=== PATIENT | male | born 1995 | race Caucasian/White ===

== ENCOUNTER 2016-04-09 17:20 | Emergency (ER) | payer SELFPAY ==
--- NOTE | 2016-04-09 19:37 | ED ORDER SUMMARY ---
..... Patient: MELINA BAILEY OrderSheet Merged With [facility] VisitID: [id number] [address] [place] [address] 21y, M Registration Date/Time: 04/09/2016 ORDER SHEET Weight: 76.6 kg Allergies: No Known Drug Allergy GENERAL ORDERS: Blood Culture (No) (N/A) Urgent (17:52 04/09/2016 Misael Robertson) (Ack 17:57 TBergley) (18:07 TBergley) CBC w Diff Urgent (17:53 04/09/2016 Misael Robertson) (Ack 17:57 TBergley) (18:07 TBergley) CMP Urgent (17:53 04/09/2016 Misael Robertson) (Ack 17:57 TBergley) (18:07 TBergley) MEDICATION ORDERS: IV FLUIDS: Clindamycin IV 600 mg/50mL (NOW) (17:53 04/09/2016 Misael Robertson) [facility] IV Saline Lock (17:53 04/09/2016 Misael Robertson) (18:14 [facility]) ORDER SHEET NOTES: [Electronically signed by Gilma Ash (19:48 04/09/2016)] [Electronically signed by Dwight Ramos Dr. (21:33 04/09/2016)] [Electronically locked/signed by Gilma Ash (19:48 04/09/2016)]
--- NOTE | 2016-04-09 19:37 | ED CLINICAL REPORT ---
Clinical Report - Physicians/Mid Levels [facility] [address] [place] [address] 04/09/2016 17:23 Patient: MELINA BAILEY Time Seen: 17:29; initial patient contact. Arrived- By private vehicle. Historian- patient. HISTORY OF PRESENT ILLNESS Chief Complaint: Injury to the right foot. The injury happened about 1 1/2 weeks ago. Occurred at home. (Blister from his shoes that became infected). Patient is experiencing mild pain. Patient denies injury to the head or neck. REVIEW OF SYSTEMS The patient sustained a laceration. He complains of pain on weight bearing. He has had swelling. No tingling, weakness, numbness, suspected foreign body or chills. No fever. All systems otherwise negative, except as recorded above. PAST HISTORY Tetanus Status. Abscess. SURGERIES: Adenoidectomy. Tympanostomy Tubes. Medications: None. Allergies: No Known Drug Allergy. SOCIAL HISTORY Current every day smoker. History of drug use: marijuana. No alcohol use. ADDITIONAL NOTES The nursing notes have been reviewed with agreement regarding the chief complaint, PMH and patient medications and allergies. PHYSICAL EXAM Vital Signs: 04/09/2016 17:34 BP: 129/88. HR: 68. RR: 18. O2 saturation: 99%. Temp: 97.9 F. Have been reviewed as normal. Appearance: Alert. Oriented X3. No acute distress. Eyes: Eyes normal inspection. ENT: Pharynx normal. The mucous membranes are not dry. CVS: Normal heart rate and rhythm. Heart sounds normal. Respiratory: No respiratory distress. Breath sounds normal. Skin: Skin intact. Skin warm and dry. Extremities: Swelling, warmth, tenderness and erythema present in the right foot and ankle. No drainage in the feet or ankles, lymphangitis in the feet or ankles or fluctuance in the feet or ankles. Foot and ankle exam otherwise negative. Extremities otherwise negative. Neuro, Vascular and Tendons: Vascular status intact. Sensation intact. Motor intact. Tendon function intact. Gait: Normal gait. Neuro: Oriented X 3. LABS, X-RAYS, AND EKG Laboratory Tests: CBC w Diff: (CHETNA: 04/09/2016 18:15) ( MsgRcvd 04/09/2016 18:25) Final results Test Result Flag Units (Reference) WHITE BLOOD COUNT 8.9 K/uL (4.5-11.5) RED BLOOD COUNT 5.06 M/uL (4.50-5.90) HEMOGLOBIN 14.6 gm/dL (13.5-17.5) HEMATOCRIT 43.5 % (41.0-53.0) MEAN CELL VOLUME 86 fL (80-100) MEAN CORPUSCULAR HGB 29 pg (26-34) MEAN CORPUSCULAR HGB CONC 34 g/dL (31-37) RED CELL DISTRIBUTION WIDTH 12.7 % (11.6-14.8) PLATELET COUNT 268 K/uL (150-400) NEUTROPHIL % 71.7 % (50-75) LYMPH % 18.8 L % (25-40) MONO % 6.1 % (3-14) EOSINOPHIL % 2.9 % (0-4) BASOPHIL % 0.5 % (0-2) CMP: (CHETNA: 04/09/2016 18:15) ( MsgRcvd 04/09/2016 18:34) Final results Test Result Flag Units (Reference) GLUCOSE 92 mg/dL (70-110) BUN 9 mg/dL (7-18) CREATININE 0.7 mg/dL (0.6-1.3) Estimated GFR >60 mL/min Estimated GFR- >60 mL/min Note: Persistent reduction over 3 months in eGFR<60 mL/min/1.73 m2 defines CKD. Patients with eGFR values>=60 mL/min/1.73 m2 may also have CKD if evidence ofpersistent proteinuria. Additional information may be foundat [email or web address]. SODIUM 140 mmol/L (136-145) POTASSIUM 4.1 mmol/L (3.5-5.1) CHLORIDE 102 mmol/L (98-107) CARBON DIOXIDE 29 mmol/L (21-32) CALCIUM 9.6 mg/dL (8.5-10.1) TOTAL PROTEIN 8.4 H g/dL (6.4-8.2) ALBUMIN 4.5 g/dL (3.3-5.0) BILIRUBIN, TOTAL 0.3 mg/dL (0.0-1.0) ALKALINE PHOSPHATASE 64 U/L (46-116) AST (SGOT) 17 U/L (15-37) ALT (SGPT) 20 U/L (12-78) . PROGRESS AND PROCEDURES Disposition: Discharged home in good condition. Condition: good. CLINICAL IMPRESSION Cellulitis of the right ankle and right foot. INSTRUCTIONS Prescription Medications: Tramadol 50 mg: take 1 orally every 6 hours as needed for pain and stiffness. Do not take more than 8 tablets in a 24 hour period. Dispense twenty (20). No refills. Clindamycin 300 mg: take 1 capsule orally every 6 hours for 7 days. No refill. Follow-up: Screening today revealed the patient's blood pressure to be in the pre-hypertensive range. The patient should follow up with a primary care provider for blood pressure management. Follow-up with: [facility], , , [address], , [place], [address] Follow up in about three days. Call for an appointment. (Electronically signed by Dwight Ramos Dr. 04/09/2016 21:33)
--- NOTE | 2016-04-09 19:37 | ED ORDER SUMMARY ---
..... Patient: MELINA BAILEY OrderSheet [facility] VisitID: [id number] [address] [place] [address] 21y, M Registration Date/Time: 04/09/2016 ORDER SHEET Weight: 76.6 kg Allergies: No Known Drug Allergy GENERAL ORDERS: Blood Culture (No) (N/A) Urgent (17:52 04/09/2016 Misael Robertson) (Ack 17:57 TBergley) (18:07 TBergley) CBC w Diff Urgent (17:53 04/09/2016 Misael Robertson) (Ack 17:57 TBergley) (18:07 TBergley) CMP Urgent (17:53 04/09/2016 Misael Robertson) (Ack 17:57 TBergley) (18:07 TBergley) MEDICATION ORDERS: IV FLUIDS: Clindamycin IV 600 mg/50mL (NOW) (17:53 04/09/2016 Misael Robertson) ([facility] IV Saline Lock (17:53 04/09/2016 Misael Robertson) (18:14 [facility]) ORDER SHEET NOTES: [Electronically signed by Gilma Ash (19:48 04/09/2016)] [Electronically signed by Dwight Ramos Dr. (21:33 04/09/2016)] [Electronically locked/signed by Gilma Ash (19:48 04/09/2016)]
--- NOTE | 2016-04-09 19:37 | ED NURSING NOTES ---
Clinical Report - [facility] [place] [address] 04/09/2016 17:23 Patient: MELINA BAILEY TRIAGE Triage time 1728. Acuity: LEVEL 3. Chief Complaint: RIGHT LOWER EXTREMITY PAIN, SWELLING and REDNESS. Location of symptoms- right ankle. Alert. No acute distress. --17:39 Gilma Ash 17:34 04/09/16. BP: 129/88. HR: 68. RR: 18. O2 saturation: 99%. Temp: 97.9 F. Pain level now 0/10. --17:39 Gilma Ash. Weight: 76.6 kg. Height/Length: 70 inches. BMI: 24.2. --17:33 Gilma Ash. Medications None. --17:37 Gilma Ash. Allergies No Known Drug Allergy. --17:37 Gilma Ash. History Arrived by private vehicle. Historian: patient. Injury occurred. Location of injuries: right posterior ankle. This occurred (10 days ago). ( Pt had blister to piosterior ankle from work boots rubbing, sts "I did not take care of it", last few days pt has noticed increased eredness, midshaft lower leg down is red, hot, and swollen, original area noted to have large ulcer crater into tissue). SOCIAL HX: Current every day heavy tobacco smoker, start date 2013 (cigarette)- less than 1 pack per day. History of drug use: marijuana. FALL RISK ASSESSMENT: Fall risk assessment completed. No fall risk identified. NUTRITIONAL RISK ASSESSMENT: The nutritional risk assessment revealed no deficiencies. FUNCTIONAL ASSESSMENT: Functional assessment: no impairments noted. LEARNING NEEDS ASSESSMENT: The learning needs assessment revealed no barriers. --17:39 Gilma Ash. PROBLEMS: Tetanus Status. Abscess. Immunizations. --17:37 Gilma Ash. ADDITIONAL SURGERIES: Adenoidectomy. Tympanostomy Tubes. --17:37 Gilma Ash. Interventions ID band on patient. To treatment room. --17:39 Gilma Ash. PHYSICAL ASSESSMENT Ambulatory to room. GENERAL / NEURO / PSYCH: Oriented X 4. Alert. Appears in no acute distress. EXTREMITIES: Erythema on the extremities. Limited ROM present. Increased warmth on the extremities. Lower extremity edema. Extremity pulses are within normal limits. Neuro-vascular status intact to the extremity. Normal gait. Right ankle: tenderness, swelling and erythema. Limited ROM secondary to pain and swelling. SKIN: Old crusted and macerated wound present on the right ankle. Skin intact. Skin is warm and dry. --17:40 Gilma Ash. NURSING PROGRESS NOTES The plan of care for this patient has been created. Reassurance given. Call light placed in reach. Side rails up x 1. Bed placed in lowest position. Brakes of bed on. Patient ready for evaluation- chart flagged. --17:40 Gilma Ash 18:14 04/09/2016 Site #1 started via IV in the left antecubital space with an 20g angiocath, with aseptic technique and good blood return; one attempt. Blood drawn: rainbow set and cultures x1. Labeled in the presence of the patient and sent to the lab. Saline lock flushed with 10 mL saline. --18:14 Gilma Ash 18:15 04/09/2016 Started 600 mg of Clindamycin IVPB in bag #1 50 mL; at 100 mL/hr over 30 minute(s) via site #1 via IV pump. Allergies verified and confirmed 5 rights. IV patency established. IV site checked: no pain, redness, or swelling. IV flushed thoroughly pre- and post-medication administration. --18:15 Gilma Ash 18:35 04/09/2016 Clindamycin IVPB Discontinued: bag #1 completed. Total amount infused: 50 mL. IV patency established. IV site checked: no pain, redness, or swelling. IV flushed thoroughly. --18:41 Lj Otero R.N. 19:46 04/09/2016 Site #1 removed upon discharge. Pressure dressing applied. --19:46 Gilma Ash Reassessment after medication administered. He is calm and has had no adverse reaction. Overall patient status is the same- he states feels the same. --19:47 Gilma Ash. DISPOSITION / DISCHARGE Departure time: 1944. Condition at departure: unchanged and stable. No learning barriers present. Discharge instructions provided and reviewed with the patient. Reviewed medication(s). Patient verbalized understanding. Written instructions provided in Swedish. The patient was discharged by the physician. He was discharged home. He left the Emergency Department ambulatory and via private vehicle. Patient driving. --19:47 Gilma Ash 19:47 04/09/16. BP: 127/76. HR: 117. RR: 18. O2 saturation: 100%. Pain level now 04/29. --19:47 Gilma Ash. Locked/Released at 04/09/2016 19:48 by Gilma Ash,
--- NOTE | 2016-04-09 19:37 | ED CLINICAL REPORT ---
Clinical Report - Physicians/Mid Levels [facility] [address] [place] [address] 04/09/2016 17:23 Patient: MELINA BAILEY Time Seen: 17:29; initial patient contact. Arrived- By private vehicle. Historian- patient. HISTORY OF PRESENT ILLNESS Chief Complaint: Injury to the right foot. The injury happened about 1 1/2 weeks ago. Occurred at home. (Blister from his shoes that became infected). Patient is experiencing mild pain. Patient denies injury to the head or neck. REVIEW OF SYSTEMS The patient sustained a laceration. He complains of pain on weight bearing. He has had swelling. No tingling, weakness, numbness, suspected foreign body or chills. No fever. All systems otherwise negative, except as recorded above. PAST HISTORY Tetanus Status. Abscess. SURGERIES: Adenoidectomy. Tympanostomy Tubes. Medications: None. Allergies: No Known Drug Allergy. SOCIAL HISTORY Current every day smoker. History of drug use: marijuana. No alcohol use. ADDITIONAL NOTES The nursing notes have been reviewed with agreement regarding the chief complaint, PMH and patient medications and allergies. PHYSICAL EXAM Vital Signs: 04/09/2016 17:34 BP: 129/88. HR: 68. RR: 18. O2 saturation: 99%. Temp: 97.9 F. Have been reviewed as normal. Appearance: Alert. Oriented X3. No acute distress. Eyes: Eyes normal inspection. ENT: Pharynx normal. The mucous membranes are not dry. CVS: Normal heart rate and rhythm. Heart sounds normal. Respiratory: No respiratory distress. Breath sounds normal. Skin: Skin intact. Skin warm and dry. Extremities: Swelling, warmth, tenderness and erythema present in the right foot and ankle. No drainage in the feet or ankles, lymphangitis in the feet or ankles or fluctuance in the feet or ankles. Foot and ankle exam otherwise negative. Extremities otherwise negative. Neuro, Vascular and Tendons: Vascular status intact. Sensation intact. Motor intact. Tendon function intact. Gait: Normal gait. Neuro: Oriented X 3. LABS, X-RAYS, AND EKG Laboratory Tests: CBC w Diff: (CHETNA: 04/09/2016 18:15) ( MsgRcvd 04/09/2016 18:25) Final results Test Result Flag Units (Reference) WHITE BLOOD COUNT 8.9 K/uL (4.5-11.5) RED BLOOD COUNT 5.06 M/uL (4.50-5.90) HEMOGLOBIN 14.6 gm/dL (13.5-17.5) HEMATOCRIT 43.5 % (41.0-53.0) MEAN CELL VOLUME 86 fL (80-100) MEAN CORPUSCULAR HGB 29 pg (26-34) MEAN CORPUSCULAR HGB CONC 34 g/dL (31-37) RED CELL DISTRIBUTION WIDTH 12.7 % (11.6-14.8) PLATELET COUNT 268 K/uL (150-400) NEUTROPHIL % 71.7 % (50-75) LYMPH % 18.8 L % (25-40) MONO % 6.1 % (3-14) EOSINOPHIL % 2.9 % (0-4) BASOPHIL % 0.5 % (0-2) CMP: (CHETNA: 04/09/2016 18:15) ( MsgRcvd 04/09/2016 18:34) Final results Test Result Flag Units (Reference) GLUCOSE 92 mg/dL (70-110) BUN 9 mg/dL (7-18) CREATININE 0.7 mg/dL (0.6-1.3) Estimated GFR >60 mL/min Estimated GFR- >60 mL/min Note: Persistent reduction over 3 months in eGFR<60 mL/min/1.73 m2 defines CKD. Patients with eGFR values>=60 mL/min/1.73 m2 may also have CKD if evidence ofpersistent proteinuria. Additional information may be foundat [email or web address]. SODIUM 140 mmol/L (136-145) POTASSIUM 4.1 mmol/L (3.5-5.1) CHLORIDE 102 mmol/L (98-107) CARBON DIOXIDE 29 mmol/L (21-32) CALCIUM 9.6 mg/dL (8.5-10.1) TOTAL PROTEIN 8.4 H g/dL (6.4-8.2) ALBUMIN 4.5 g/dL (3.3-5.0) BILIRUBIN, TOTAL 0.3 mg/dL (0.0-1.0) ALKALINE PHOSPHATASE 64 U/L (46-116) AST (SGOT) 17 U/L (15-37) ALT (SGPT) 20 U/L (12-78) . PROGRESS AND PROCEDURES Disposition: Discharged home in good condition. Condition: good. CLINICAL IMPRESSION Cellulitis of the right ankle and right foot. INSTRUCTIONS Prescription Medications: Tramadol 50 mg: take 1 orally every 6 hours as needed for pain and stiffness. Do not take more than 8 tablets in a 24 hour period. Dispense twenty (20). No refills. Clindamycin 300 mg: take 1 capsule orally every 6 hours for 7 days. No refill. Follow-up: Screening today revealed the patient's blood pressure to be in the pre-hypertensive range. The patient should follow up with a primary care provider for blood pressure management. Follow-up with: [facility], , , [address], , [place], [address] Follow up in about three days. Call for an appointment. (Electronically signed by Dwight Ramos Dr. 04/09/2016 21:33)
--- NOTE | 2016-04-09 21:33 | ED DISCHARGE INSTRUCTIONS ---
Patient: MELINA BAILEY General Instructions [facility] VisitID: [id number] [address], [place] [address] 21y, M Registration Date/Time: 04/09/2016 Cellulitis of the right ankle and right foot. INSTRUCTIONS Prescription Medications: Tramadol 50 mg: take 1 orally every 6 hours as needed for pain and stiffness. Do not take more than 8 tablets in a 24 hour period. Dispense twenty (20). No refills. Clindamycin 300 mg: take 1 capsule orally every 6 hours for 7 days. No refill. Follow-up: Screening today revealed the patient's blood pressure to be in the pre-hypertensive range. The patient should follow up with a primary care provider for blood pressure management. Follow-up with: [facility], , , [address], , [place], [address] Follow up in about three days. Call for an appointment. ADDITIONAL INFORMATION Cellulitis You have an infection of the skin known as cellulitis. This usually starts with a scrape, cut, insect bite, blister or other opening in the skin which becomes infected. This is a serious condition. It must be watched closely to be sure the infection is not spreading. With antibiotic treatment, the size of the red area will gradually shrink in size until the skin returns to normal. This will take 7-10 days. The red area should never increase in size once the antibiotic medicine has been started. Occasionally, an infection will be resistant to one antibiotic and another one will have to be used. Home Care: 1) Limit the use of the affected part, since excess movement can cause the infection to spread. 2) If the infection is on your leg, walk as little as possible during the first few days of the treatment. Keep your leg elevated while sitting. This will reduce swelling. 3) Take all of the antibiotic medicine exactly as directed until it is gone. Be careful not to miss any doses, especially during the first seven days. Follow Up with your doctor or this facility as directed. Check the infected area daily for the warning signs listed below. Get Prompt Medical Attention if any of the following occur: -- Spreading area of redness -- Increasing swelling or pain -- Appearance of pus or drainage -- Fever over 100.4 F (38.0 C) oral, or over 101.4 F (38.6 C) rectal, after two days on antibiotics Tramadol Hydrochloride Oral tablet What is this medicine? TRAMADOL (TRA ma dole) is a pain reliever. It is used to treat moderate to severe pain in adults. How should I use this medicine? Take this medicine by mouth with a full glass of water. Follow the directions on the prescription label. If the medicine upsets your stomach, take it with food or milk. Do not take more medicine than you are told to take. Talk to your research scholar regarding the use of this medicine in children. Special care may be needed. What side effects may I notice from receiving this medicine? Side effects that you should report to your doctor or health field care manager as soon as possible: allergic reactions like skin rash, itching or hives, swelling of the face, lips, or tongue breathing difficulties, wheezing confusion itching light headedness or fainting spells redness, blistering, peeling or loosening of the skin, including inside the mouth seizures Side effects that usually do not require medical attention (report to your doctor or health field care manager if they continue or are bothersome): constipation dizziness drowsiness headache nausea, vomiting What may interact with this medicine? Do not take this medicine with any of the following medications: MAOIs like Carbex, Eldepryl, Marplan, Nardil, and Parnate This medicine may also interact with the following medications: alcohol or medicines that contain alcohol antihistamines benzodiazepines bupropion carbamazepine or oxcarbazepine clozapine cyclobenzaprine digoxin furazolidone linezolid medicines for depression, anxiety, or psychotic disturbances medicines for migraine headache like almotriptan, eletriptan, frovatriptan, naratriptan, rizatriptan, sumatriptan, zolmitriptan medicines for pain like pentazocine, buprenorphine, butorphanol, meperidine, nalbuphine, and propoxyphene medicines for sleep muscle relaxants naltrexone phenobarbital phenothiazines like perphenazine, thioridazine, chlorpromazine, mesoridazine, fluphenazine, prochlorperazine, promazine, and trifluoperazine procarbazine warfarin What if I miss a dose? If you miss a dose, take it as soon as you can. If it is almost time for your next dose, take only that dose. Do not take double or extra doses. Where should I keep my medicine? Keep out of the reach of children. Store at room temperature between 15 and 30 degrees C (59 and 86 degrees F). Keep container tightly closed. Throw away any unused medicine after the expiration date. What should I tell my health care provider before I take this medicine? They need to know if you have any of these conditions: brain tumor depression drug abuse or addiction head injury if you frequently drink alcohol containing drinks kidney disease or trouble passing urine liver disease lung disease, asthma, or breathing problems seizures or epilepsy suicidal thoughts, plans, or attempt; a previous suicide attempt by you or a family member an unusual or allergic reaction to tramadol, codeine, other medicines, foods, dyes, or preservatives or trying to get breast-feeding What should I watch for while using this medicine? Tell your doctor or health field care manager if your pain does not go away, if it gets worse, or if you have new or a different type of pain. You may develop tolerance to the medicine. Tolerance means that you will need a higher dose of the medicine for pain relief. Tolerance is normal and is expected if you take this medicine for a long time. Do not suddenly stop taking your medicine because you may develop a severe reaction. Your body becomes used to the medicine. This does NOT mean you are addicted. Addiction is a behavior related to getting and using a drug for a non-medical reason. If you have pain, you have a medical reason to take pain medicine. Your doctor will tell you how much medicine to take. If your doctor wants you to stop the medicine, the dose will be slowly lowered over time to avoid any side effects. You may get drowsy or dizzy. Do not drive, use machinery, or do anything that needs mental alertness until you know how this medicine affects you. Do not stand or sit up quickly, especially if you are an older patient. This reduces the risk of dizzy or fainting spells. Alcohol can increase or decrease the effects of this medicine. Avoid alcoholic drinks. You may have constipation. Try to have a bowel movement at least every 2 to 3 days. If you do not have a bowel movement for 3 days, call your doctor or health field care manager. Your mouth may get dry. Chewing sugarless gum or sucking hard candy, and drinking plenty of water may help. Contact your doctor if the problem does not go away or is severe. Clindamycin Hydrochloride Oral capsule What is this medicine? CLINDAMYCIN (NORMA Dumont) is a lincosamide antibiotic. It is used to treat certain kinds of bacterial infections. It will not work for colds, flu, or other viral infections. How should I use this medicine? Take this medicine by mouth with a full glass of water. Follow the directions on the prescription label. You can take this medicine with food or on an empty stomach. If the medicine upsets your stomach, take it with food. Take your medicine at regular intervals. Do not take your medicine more often than directed. Take all of your medicine as directed even if you think your are better. Do not skip doses or stop your medicine early. Talk to your research scholar regarding the use of this medicine in children. Special care may be needed. What side effects may I notice from receiving this medicine? Side effects that you should report to your doctor or health field care manager as soon as possible: allergic reactions like skin rash, itching or hives, swelling of the face, lips, or tongue dark urine pain on swallowing redness, blistering, peeling or loosening of the skin, including inside the mouth unusual bleeding or bruising unusually weak or tired yellowing of eyes or skin Side effects that usually do not require medical attention (report to your doctor or health field care manager if they continue or are bothersome): diarrhea itching in the rectal or genital area joint pain nausea, vomiting stomach pain What may interact with this medicine? chloramphenicol erythromycin kaolin products What if I miss a dose? If you miss a dose, take it as soon as you can. If it is almost time for your next dose, take only that dose. Do not take double or extra doses. Where should I keep my medicine? Keep out of the reach of children. Store at room temperature between 20 and 25 degrees C (68 and 77 degrees F). Throw away any unused medicine after the expiration date. What should I tell my health care provider before I take this medicine? They need to know if you have any of these conditions: kidney disease liver disease stomach problems like colitis an unusual or allergic reaction to clindamycin, lincomycin, or other medicines, foods, dyes like tartrazine or preservatives or trying to get breast-feeding What should I watch for while using this medicine? Tell your doctor or healthcare professional if your symptoms do not start to get better or if they get worse. Do not treat diarrhea with over the counter products. Contact your doctor if you have diarrhea that lasts more than 2 days or if it is severe and watery. You have been given the following additional information: Cellulitis Tramadol Hydrochloride Oral tablet Clindamycin Hydrochloride Oral capsule (Electronically signed by Dwight Ramos Dr. 04/09/2016 21:33)
--- NOTE | 2016-04-09 21:33 | ED MAR SUMMARY ---
..... Medication Administration Record [facility] [address] [place] [address] Patient: MELINA BAILEY Visit ID: [id number] 21y, M Weight: 76.6 kg Height/Length: 70 in BMI: 24.2 ALLERGIES: No Known Drug Allergy Start 18:15 04/09/2016 Gilma Ash,, Stop 18:35 04/09/2016 Lj Otero R.N. Medication Administered: CLINDAMYCIN [IVPB], Dose: 600 mg IVPB over 30 minute(s), Rate: 100 mL/hr, Dispensed: 50 mL bag, Site: #1 left AC. Medication Ordered: Clindamycin IV 600 mg/50mL (NOW).
--- NOTE | 2016-04-09 21:33 | ED MED RECONCILIATION SUMMARY ---
Patient: MELINA BAILEY Medication Reconciliation Report [facility] VisitID: [id number] [address] [place] [address] 21y, M Registration Date/Time: 04/09/2016 Weight: 76.6 kg Height/Length: 70 in. BMI: 24.2 ALLERGIES: No Known Drug Allergy The patient's Home Medications are listed below: NONE. The source(s) of the original Home Medication information: Not obtained. The following Medications were given to the patient in the Emergency Department: Clindamycin [IVPB] IVPB bolus 0, then 600 mg 100 mL/hr, administered: 04/09/2016 6:15:00 PM The following Medications were prescribed to the patient: Tramadol 50 mg: take 1 orally every 6 hours as needed for pain and stiffness. Do not take more than 8 tablets in a 24 hour period. Dispense twenty (20). No refills. -- Dwight Ramos Dr. Clindamycin 300 mg: take 1 capsule orally every 6 hours for 7 days. No refill. -- Dwight Ramos Dr.
--- NOTE | 2016-04-09 21:33 | ED MAR SUMMARY ---
..... Medication Administration Record [facility] [address] [place] [address] Patient: MELINA BAILEY Visit ID: [id number] 21y, M Weight: 76.6 kg Height/Length: 70 in BMI: 24.2 ALLERGIES: No Known Drug Allergy Start 18:15 04/09/2016 Gilma Ash,, Stop 18:35 04/09/2016 Lj Otero R.N. Medication Administered: CLINDAMYCIN [IVPB], Dose: 600 mg IVPB over 30 minute(s), Rate: 100 mL/hr, Dispensed: 50 mL bag, Site: #1 left AC. Medication Ordered: Clindamycin IV 600 mg/50mL (NOW).
--- NOTE | 2016-04-09 21:33 | ED DISCHARGE INSTRUCTIONS ---
Patient: MELINA BAILEY General Instructions [facility] VisitID: [id number] [address], [place] [address] 21y, M Registration Date/Time: 04/09/2016 Cellulitis of the right ankle and right foot. INSTRUCTIONS Prescription Medications: Tramadol 50 mg: take 1 orally every 6 hours as needed for pain and stiffness. Do not take more than 8 tablets in a 24 hour period. Dispense twenty (20). No refills. Clindamycin 300 mg: take 1 capsule orally every 6 hours for 7 days. No refill. Follow-up: Screening today revealed the patient's blood pressure to be in the pre-hypertensive range. The patient should follow up with a primary care provider for blood pressure management. Follow-up with: [facility], , , [address], , [place], [address] Follow up in about three days. Call for an appointment. ADDITIONAL INFORMATION Cellulitis You have an infection of the skin known as cellulitis. This usually starts with a scrape, cut, insect bite, blister or other opening in the skin which becomes infected. This is a serious condition. It must be watched closely to be sure the infection is not spreading. With antibiotic treatment, the size of the red area will gradually shrink in size until the skin returns to normal. This will take 7-10 days. The red area should never increase in size once the antibiotic medicine has been started. Occasionally, an infection will be resistant to one antibiotic and another one will have to be used. Home Care: 1) Limit the use of the affected part, since excess movement can cause the infection to spread. 2) If the infection is on your leg, walk as little as possible during the first few days of the treatment. Keep your leg elevated while sitting. This will reduce swelling. 3) Take all of the antibiotic medicine exactly as directed until it is gone. Be careful not to miss any doses, especially during the first seven days. Follow Up with your doctor or this facility as directed. Check the infected area daily for the warning signs listed below. Get Prompt Medical Attention if any of the following occur: -- Spreading area of redness -- Increasing swelling or pain -- Appearance of pus or drainage -- Fever over 100.4 F (38.0 C) oral, or over 101.4 F (38.6 C) rectal, after two days on antibiotics Tramadol Hydrochloride Oral tablet What is this medicine? TRAMADOL (TRA ma dole) is a pain reliever. It is used to treat moderate to severe pain in adults. How should I use this medicine? Take this medicine by mouth with a full glass of water. Follow the directions on the prescription label. If the medicine upsets your stomach, take it with food or milk. Do not take more medicine than you are told to take. Talk to your hot strip mill supervisor regarding the use of this medicine in children. Special care may be needed. What side effects may I notice from receiving this medicine? Side effects that you should report to your doctor or health student career development specialist as soon as possible: allergic reactions like skin rash, itching or hives, swelling of the face, lips, or tongue breathing difficulties, wheezing confusion itching light headedness or fainting spells redness, blistering, peeling or loosening of the skin, including inside the mouth seizures Side effects that usually do not require medical attention (report to your doctor or health student career development specialist if they continue or are bothersome): constipation dizziness drowsiness headache nausea, vomiting What may interact with this medicine? Do not take this medicine with any of the following medications: MAOIs like Carbex, Eldepryl, Marplan, Nardil, and Parnate This medicine may also interact with the following medications: alcohol or medicines that contain alcohol antihistamines benzodiazepines bupropion carbamazepine or oxcarbazepine clozapine cyclobenzaprine digoxin furazolidone linezolid medicines for depression, anxiety, or psychotic disturbances medicines for migraine headache like almotriptan, eletriptan, frovatriptan, naratriptan, rizatriptan, sumatriptan, zolmitriptan medicines for pain like pentazocine, buprenorphine, butorphanol, meperidine, nalbuphine, and propoxyphene medicines for sleep muscle relaxants naltrexone phenobarbital phenothiazines like perphenazine, thioridazine, chlorpromazine, mesoridazine, fluphenazine, prochlorperazine, promazine, and trifluoperazine procarbazine warfarin What if I miss a dose? If you miss a dose, take it as soon as you can. If it is almost time for your next dose, take only that dose. Do not take double or extra doses. Where should I keep my medicine? Keep out of the reach of children. Store at room temperature between 15 and 30 degrees C (59 and 86 degrees F). Keep container tightly closed. Throw away any unused medicine after the expiration date. What should I tell my health care provider before I take this medicine? They need to know if you have any of these conditions: brain tumor depression drug abuse or addiction head injury if you frequently drink alcohol containing drinks kidney disease or trouble passing urine liver disease lung disease, asthma, or breathing problems seizures or epilepsy suicidal thoughts, plans, or attempt; a previous suicide attempt by you or a family member an unusual or allergic reaction to tramadol, codeine, other medicines, foods, dyes, or preservatives or trying to get breast-feeding What should I watch for while using this medicine? Tell your doctor or health student career development specialist if your pain does not go away, if it gets worse, or if you have new or a different type of pain. You may develop tolerance to the medicine. Tolerance means that you will need a higher dose of the medicine for pain relief. Tolerance is normal and is expected if you take this medicine for a long time. Do not suddenly stop taking your medicine because you may develop a severe reaction. Your body becomes used to the medicine. This does NOT mean you are addicted. Addiction is a behavior related to getting and using a drug for a non-medical reason. If you have pain, you have a medical reason to take pain medicine. Your doctor will tell you how much medicine to take. If your doctor wants you to stop the medicine, the dose will be slowly lowered over time to avoid any side effects. You may get drowsy or dizzy. Do not drive, use machinery, or do anything that needs mental alertness until you know how this medicine affects you. Do not stand or sit up quickly, especially if you are an older patient. This reduces the risk of dizzy or fainting spells. Alcohol can increase or decrease the effects of this medicine. Avoid alcoholic drinks. You may have constipation. Try to have a bowel movement at least every 2 to 3 days. If you do not have a bowel movement for 3 days, call your doctor or health student career development specialist. Your mouth may get dry. Chewing sugarless gum or sucking hard candy, and drinking plenty of water may help. Contact your doctor if the problem does not go away or is severe. Clindamycin Hydrochloride Oral capsule What is this medicine? CLINDAMYCIN (NORMA Dumont) is a lincosamide antibiotic. It is used to treat certain kinds of bacterial infections. It will not work for colds, flu, or other viral infections. How should I use this medicine? Take this medicine by mouth with a full glass of water. Follow the directions on the prescription label. You can take this medicine with food or on an empty stomach. If the medicine upsets your stomach, take it with food. Take your medicine at regular intervals. Do not take your medicine more often than directed. Take all of your medicine as directed even if you think your are better. Do not skip doses or stop your medicine early. Talk to your hot strip mill supervisor regarding the use of this medicine in children. Special care may be needed. What side effects may I notice from receiving this medicine? Side effects that you should report to your doctor or health student career development specialist as soon as possible: allergic reactions like skin rash, itching or hives, swelling of the face, lips, or tongue dark urine pain on swallowing redness, blistering, peeling or loosening of the skin, including inside the mouth unusual bleeding or bruising unusually weak or tired yellowing of eyes or skin Side effects that usually do not require medical attention (report to your doctor or health student career development specialist if they continue or are bothersome): diarrhea itching in the rectal or genital area joint pain nausea, vomiting stomach pain What may interact with this medicine? chloramphenicol erythromycin kaolin products What if I miss a dose? If you miss a dose, take it as soon as you can. If it is almost time for your next dose, take only that dose. Do not take double or extra doses. Where should I keep my medicine? Keep out of the reach of children. Store at room temperature between 20 and 25 degrees C (68 and 77 degrees F). Throw away any unused medicine after the expiration date. What should I tell my health care provider before I take this medicine? They need to know if you have any of these conditions: kidney disease liver disease stomach problems like colitis an unusual or allergic reaction to clindamycin, lincomycin, or other medicines, foods, dyes like tartrazine or preservatives or trying to get breast-feeding What should I watch for while using this medicine? Tell your doctor or healthcare professional if your symptoms do not start to get better or if they get worse. Do not treat diarrhea with over the counter products. Contact your doctor if you have diarrhea that lasts more than 2 days or if it is severe and watery. You have been given the following additional information: Cellulitis Tramadol Hydrochloride Oral tablet Clindamycin Hydrochloride Oral capsule (Electronically signed by Dwight Ramos Dr. 04/09/2016 21:33)
--- NOTE | 2016-04-09 21:33 | ED MED RECONCILIATION SUMMARY ---
Patient: MELINA BAILEY Medication Reconciliation Report [facility] VisitID: [id number] [address] [place] [address] 21y, M Registration Date/Time: 04/09/2016 Weight: 76.6 kg Height/Length: 70 in. BMI: 24.2 ALLERGIES: No Known Drug Allergy The patient's Home Medications are listed below: NONE. The source(s) of the original Home Medication information: Not obtained. The following Medications were given to the patient in the Emergency Department: Clindamycin [IVPB] IVPB bolus 0, then 600 mg 100 mL/hr, administered: 04/09/2016 6:15:00 PM The following Medications were prescribed to the patient: Tramadol 50 mg: take 1 orally every 6 hours as needed for pain and stiffness. Do not take more than 8 tablets in a 24 hour period. Dispense twenty (20). No refills. -- Dwight Ramos Dr. Clindamycin 300 mg: take 1 capsule orally every 6 hours for 7 days. No refill. -- Dwight Ramos Dr.
== END 2016-04-09 19:45 | disposition home or self-care (01) ==
LOC: ED SRH 17:20
DX: L03.115 Cellulitis of right lower limb (principal)
CPT/HCPCS: 90065; 90100; 95059